=== PATIENT | male | born 1945 | race Caucasian/White ===

== ENCOUNTER 2017-02-24 22:02 | Emergency (ER) | payer SELFPAY ==
[2017-02-24 22:02] VITALS: BMI 20.7
[2017-02-24] MEDS ORDERED: Albuterol-Ipratrop 3 mg / 0.5 (3 ml) UD ONE ×2 (22:09→23:06)
[2017-02-24] MEDS ORDERED: Albuterol 0.083% Inhal Sol (2.5 mg/3 mL) UD INH STA (22:31)
--- NOTE | 2017-02-24 22:34 | C.PDOC ---
Time Seen by Provider: 02/24/17 22:27 Chief Complaint (Nursing): Shortness Of Breath Past Medical History Vital Signs: Last Vital Signs Temp 97.6 F 02/24/17 23:10 Pulse 95 H 02/24/17 23:10 Resp 18 02/24/17 23:10 BP 144/71 02/24/17 23:10 Pulse Ox 98 02/24/17 23:10 - Medical History PMH: Asthma, Emphysema Family History: States: Unknown Family Hx - Social History Hx Tobacco Use: Yes Hx Alcohol Use: Yes Hx Substance Use: No - Immunization History Hx Tetanus Toxoid Vaccination: No Hx Influenza Vaccination: No Hx Pneumococcal Vaccination: No ED Course And Treatment O2 Sat by Pulse Oximetry: 99 Disposition - Disposition Disposition: HOME/ ROUTINE Disposition Time: 23:30 Condition: IMPROVED Prescriptions: Albuterol HFA [Ventolin HFA 90 mcg/actuation (8 g)] 2 puff IH [id number] PRN #1 puff PRN Reason: Cough Instructions: Acute Bronchitis (ED), Wheezing (ED) Forms: [employer] (Turkish) - Clinical Impression Clinical Impression: Asthmatic bronchitis
[2017-02-24] MEDS ORDERED: Albuterol-Ipratrop 3 mg / 0.5 (3 ml) UD INH STA (23:00)
[2017-02-24 23:10] VITALS: BP 144/71; PULSE 95; RESP 18; TEMP 97.6
[2017-03-18 12:17] VITALS: O2SAT 99
== END 2017-02-24 23:34 | disposition home or self-care (01) ==
LOC: C.ER 22:02
DX: J45.909 Unspecified asthma, uncomplicated (principal); Z87.891 Personal history of nicotine dependence

== ENCOUNTER 2017-03-03 18:42 | Emergency (ER) | payer SELFPAY ==
[2017-03-03 18:42] VITALS: BMI 20.7
--- NOTE | 2017-03-03 19:48 | C.PDOC ---
History Of Present Illness 71 year old male brought to the ED via ambulance for evaluation of alcohol intoxication. Patient also states he is cold and is requesting a place to sleep for the night. He also complains of wheezing and productive cough with white sputum. Patient has been using albuterol inhaler today without relief. He denies any falls/injuries, chest pain, or other physical complaints. Time Seen by Provider: 03/03/17 19:09 Chief Complaint (Nursing): Substance Abuse History Per: Patient, EMS History/Exam Limitations: intoxication Onset/Duration Of Symptoms: Hrs Current Symptoms Are (Timing): Still Present Suicide/Self Injury Attempted (Context): None Modifying Factor(s): Alcohol Severity: Mild Associated Symptoms: denies: Suicidal Thoughts, Suicidal Plan Involuntary Hold By: Emergency Physician Additional History Per: Patient, EMS Past Medical History Reviewed: Historical Data, Nursing Documentation, Vital Signs Vital Signs: Last Vital Signs Temp 98 F 03/04/17 06:13 Pulse 86 03/04/17 06:13 Resp 18 03/04/17 06:13 BP 127/69 03/03/17 23:56 Pulse Ox 97 03/04/17 06:13 - Medical History PMH: Asthma, Emphysema Surgical History: No Surg Hx Family History: States: No Known Family Hx - Social History Hx Tobacco Use: Yes Hx Alcohol Use: Yes Hx Substance Use: No - Immunization History Hx Tetanus Toxoid Vaccination: No Hx Influenza Vaccination: No Hx Pneumococcal Vaccination: No Review Of Systems Except As Marked, All Systems Reviewed And Found Negative. Constitutional: Negative for: Fever, Chills Cardiovascular: Negative for: Chest Pain, Palpitations Respiratory: Positive for: Cough, Sputum (white), Wheezing Gastrointestinal: Negative for: Nausea, Vomiting, Abdominal Pain, Diarrhea Psych: Positive for: Other (EtOH intoxication ). Negative for: Suicidal ideation Physical Exam - Physical Exam Appears: Well, Non-toxic, No Acute Distress, Other (mildly intoxicated ) Skin: Normal Color, Warm, Dry Head: Atraumatic, Normacephalic Eye(s): bilateral: Normal Inspection Oral Mucosa: Moist, Other (alcohol on breath ) Neck: Supple Chest: No Deformity Cardiovascular: Rhythm Regular Respiratory: No Accessory Muscle Use, No Rales, No Rhonchi, Wheezing (scant, expiratory wheezing B/L) Gastrointestinal/Abdominal: Normal Exam, Bowel Sounds, Soft, No Tenderness Extremity: Normal ROM, No Pedal Edema, No Calf Tenderness Neurological/Psych: Oriented x3, Other (awake, alert ) ED Course And Treatment O2 Sat by Pulse Oximetry: 98 (on RA) Pulse Ox Interpretation: Normal Progress Note: CXR ordered and reviewed. Patient given duoneb treatment, PO azithromycin. 3:45am - Patient arousable to verbal stimuli. Pending sobriety, AM discharge. 6:00am- Patient is AAOx3, ambulating normally in ED. He is clinically sober at this time. ON exam, he has gooa air entry B/L without wheezing or accessory muscle use. CXR (-) for infiltrates, however patient is smoker with productive cough, will treat with azithromycin. Patient instructed to follow up with PMD/clinic in 1-2 days, and understands he should return to ED if symptoms worsen. Disposition Counseled Patient/Family Regarding: Studies Performed, Diagnosis, Need For Followup, Rx Given - Disposition Referrals: [facility] [Outside] Disposition: HOME/ ROUTINE Disposition Time: 06:00 Condition: STABLE Additional Instructions: SEGUIMIENTO CON CLNICA MDICA EN 1-2 PURCELL USE MEDICAMENTOS SEGN LO INDICADO REGRESE AL SHIVA DE EMERGENCIA SI LOS SNTOMAS EMPEORAN Prescriptions: Albuterol HFA [Ventolin HFA 90 mcg/actuation (8 g)] 0.09 mg IH Q4 PRN #1 puff PRN Reason: Wheezing Azithromycin [Zithromax] 250 mg PO DAILY #4 tab Instructions: Acute Bronchitis (ED), Alcohol Intoxication (ED) Forms: [employer] (Luxembourger) Print Language: DUTCH - POA Present On Arrival: None - Clinical Impression Clinical Impression: Asthmatic bronchitis, Alcohol intoxication - Scribe Statement The provider has reviewed the documentation as recorded by the Scribe (Meme Soni) Provider Attestation: All medical record entries made by the Scribe were at my direction and personally dictated by me. I have reviewed the chart and agree that the record accurately reflects my personal performance of the history, physical exam, medical decision making, and the department course for this patient. I have also personally directed, reviewed, and agree with the discharge instructions and disposition.
[2017-03-03] MEDS ORDERED: Albuterol-Ipratrop 3 mg / 0.5 (3 ml) UD INH STA (21:51)
[2017-03-03] MEDS ORDERED: Albuterol-Ipratrop 3 mg / 0.5 (3 ml) UD ONE ×2 (22:00→22:09)
[2017-03-03 23:57] VITALS: BP 127/69; RESP 18
[2017-03-04 06:17] VITALS: PULSE 86; TEMP 98
[2017-03-06 07:24] VITALS: O2SAT 98
--- NOTE | 2017-03-07 10:12 | RAD ---
HISTORY: PRODUCTIVE COUGH COMPARISON: 02/16/2013 TECHNIQUE: Chest PA and lateral FINDINGS: LUNGS: The right peritracheal postsurgical changes are renoted. Vague increased opacity/interval pleural parenchymal pathology here is possible. The elevated right hemidiaphragm volume loss is as before. Surgical changes extend down to the right hilum. Vague increased opacity fat dense consolidation perceived over the right hemithorax. Left apical pleural thickening-similar PLEURA: No significant pleural effusion identified. No pneumothorax apparent. CARDIOVASCULAR: Top-normal heart size. Tortuous unfolded thoracic aorta. Central pulmonary vasculature is minimally increased- this may in part be chronic. OSSEOUS STRUCTURES: No significant abnormalities. VISUALIZED UPPER ABDOMEN: Normal. OTHER FINDINGS: None. IMPRESSION: Right peritracheal/right upper lobe postsurgical changes. Here the pleural-parenchymal density appears slightly increased. Interval and/or progressive right upper lobe pathology here - possible-not excluded. Vague increased opacity perceived over the right hudson thorax -increased pulmonary venous congestion - 1 consideration. No dense consolidation noted. Volume loss elevated right hemidiaphragm-similar appearance
== END 2017-03-04 06:18 | disposition home or self-care (01) ==
LOC: C.ER 18:42
DX: J45.909 Unspecified asthma, uncomplicated (principal); Z72.0 Tobacco use; F10.129 Alcohol abuse with intoxication, unspecified; Y90.9 Presence of alcohol in blood, level not specified

== ENCOUNTER 2017-11-17 23:22 | Emergency (ER) | payer OTHER ==
[2017-11-17 23:22] VITALS: BMI 20.7
[2017-11-17] MEDS ORDERED: Albuterol-Ipratrop 3 mg / 0.5 (3 ml) UD ONE (23:31)
--- NOTE | 2017-11-18 00:01 | C.PDOC ---
History Of Present Illness patient presents with wheezing and cough for the last few days. He has ran out of his inhaler. Speaking in complete sentences, no f/c/n/v. No chest pain or palpitations Time Seen by Provider: 11/18/17 00:01 Chief Complaint (Nursing): Shortness Of Breath Past Medical History Reviewed: Historical Data, Nursing Documentation, Vital Signs Vital Signs: Last Vital Signs Temp 97.8 F 11/17/17 23:32 Pulse 88 11/18/17 01:30 Resp 14 11/18/17 01:30 BP 131/55 L 11/18/17 01:30 Pulse Ox 100 11/18/17 02:16 - Medical History PMH: Asthma, CHF, COPD, Emphysema Denies: Chronic Kidney Disease - [facility] Procedures DETOXIFICATION SERVICES FOR SUBSTANCE ABUSE TREATMENT (05/15/17) EXTIRPATION OF MATTER FROM SUBDURAL SPACE, OPEN APPROACH (08/10/17) INSERTION OF ENDOTRACHEAL AIRWAY INTO TRACHEA, ENDO (08/10/17) PHERESIS OF PLATELETS, SINGLE (08/10/17) RESPIRATORY VENTILATION, 24-96 CONSECUTIVE HOURS (08/10/17) TRANSFUSE NONAUT FROZEN PLASMA IN PERIPH VEIN, PERC (08/10/17) Family History: States: No Known Family Hx - Social History Hx Tobacco Use: Yes (former, quit 1 yr ago) Hx Alcohol Use: Yes Hx Substance Use: No - Immunization History Hx Tetanus Toxoid Vaccination: No Hx Influenza Vaccination: No Hx Pneumococcal Vaccination: No Review Of Systems Constitutional: Negative for: Fever, Chills ENT: Negative for: Throat Pain Cardiovascular: Negative for: Chest Pain Respiratory: Positive for: Shortness of Breath, Wheezing Gastrointestinal: Negative for: Nausea, Vomiting, Abdominal Pain Musculoskeletal: Negative for: Back Pain Skin: Negative for: Rash Neurological: Negative for: Weakness Psych: Negative for: Anxiety Physical Exam - Physical Exam Appears: Non-toxic, No Acute Distress Skin: Warm, Dry Oral Mucosa: Moist Neck: Supple Chest: Symmetrical Cardiovascular: Rhythm Regular Respiratory: Decreased Breath Sounds, No Rales, Rhonchi (bases), Wheezing ( diffuse) Gastrointestinal/Abdominal: Soft, No Tenderness, No Distention Back: Normal Inspection Extremity: Normal ROM Extremity: Bilateral: Atraumatic Neurological/Psych: Oriented x3, Normal Speech, Normal Cognition Gait: Steady ED Course And Treatment - Laboratory Results Result Diagrams: 11/18/17 00:18 11/18/17 00:18 ECG: Interpreted By Me, Viewed By Me ECG Rhythm: Sinus Rhythm (69), Nonspecific Changes O2 Sat by Pulse Oximetry: 100 Pulse Ox Interpretation: Normal - Radiology CXR: Interpreted by Me, Viewed By Me CXR Interpretation: No: Infiltrates, Fracture, Pnemothorax Progress Note: 2:17 pt feels much better, no wheezing or sob Reevaluation Time: 02:18 Reassessment Condition: Improved Critical Care Time - Critical Care Note Total Time (in mins): 30 Documented critical care: time excludes all time spent performing seperately billable procedures. Disposition Counseled Patient/Family Regarding: Studies Performed, Diagnosis, Need For Followup - Disposition Referrals: [facility] [Outside] [facility] [Outside] Disposition: HOME/ ROUTINE Disposition Time: 00:01 Condition: FAIR Additional Instructions: Please return if symptoms recur Prescriptions: Albuterol HFA [Ventolin HFA 90 mcg/actuation (8 g)] 2 puff IH [id number] #1 puff Azithromycin [Zithromax Tri-Alex] 500 mg PO DAILY #3 tab Prednisone [Deltasone] 20 mg PO DAILY #5 tablet Instructions: Asthma, Adult (DC) Forms: [employer] (Nigerian) - Clinical Impression Clinical Impression: Asthma exacerbation
[2017-11-18] MEDS ORDERED: Albuterol-Ipratrop 3 mg / 0.5 (3 ml) UD ONE (00:15)
[2017-11-18] MEDS: Albuterol-Ipratrop 3 mg / 0.5 (3 ml) UD IH SCH ×3 (00:21→00:51)
[2017-11-18 00:22] LABS: VENOUS BLOOD GAS BASE EXCESS 2.8 mmol/L (0.0-2.0); VENOUS BLOOD GAS PCO2 52 mmHg (40-60); VENOUS BLOOD GAS PO2 25 mm/Hg (30-55); VENOUS BLOOD PH 7.36 (7.32-7.43)
[2017-11-18 00:23] LABS: BASO # 0.1 K/uL (0.0-0.2); BASO % 1.9 % (0.0-2.0); EOS # 0.2 K/uL (0.0-0.7); EOS % 6.3 % (0.0-4.0); HEMOGLOBIN 10.9 g/dL (12.0-18.0); LYMPH # 1.6 K/uL (1.0-4.3); LYMPH % 46.1 % (20.0-40.0); MEAN CORPUSCULAR HEMOGLOBIN 33.4 pg (27.0-31.0); MEAN CORPUSCULAR HGB CONC 34.1 g/dL (33.0-37.0); MEAN PLATELET VOLUME 6.6 fL (7.2-11.7); MONO # 0.5 K/uL (0.0-0.8); MONO % 15.1 % (0.0-10.0); NEUT # 1.1 K/uL (1.8-7.0); NEUT % 30.6 % (50.0-75.0); RBC 3.28 Mil/uL (4.40-5.90); RED CELL DISTRIBUTION WIDTH 13.7 % (11.5-14.5); WHITE BLOOD COUNT 3.5 K/uL (4.8-10.8)
[2017-11-18 00:45] LABS: B-TYPE NATRIURETIC PEPTIDE 244 pg/mL (0-900)
[2017-11-18 00:48] LABS: ALB/GLOB RATIO 1.8 (1.0-2.1); ALBUMIN 4.6 g/dL (3.5-5.0); ALT/SGPT 35 U/L (21-72); AST/SGOT 67 U/L (17-59); BLOOD UREA NITROGEN 23 mg/dL (9-20); CALCIUM 8.8 mg/dl (8.6-10.4); GFR NON-AFRICAN AMERICAN > 60
[2017-11-18 05:11] VITALS: BP 133/66; PULSE 98; RESP 16; TEMP 98.4; O2SAT 96
--- NOTE | 2017-11-18 09:55 | RAD ---
Date of service: 11/18/2017 PROCEDURE: CHEST RADIOGRAPH, 1 VIEW HISTORY: SOB COMPARISON: Chest radiograph dated 08/18/2017. FINDINGS: LUNGS: Left basilar atelectasis. PLEURA: Small left pleural effusion. CARDIOVASCULAR: Atherosclerotic aortic calcifications. Cardiomediastinal silhouette within normal limits. OSSEOUS STRUCTURES: Unchanged. VISUALIZED UPPER ABDOMEN: Normal. OTHER FINDINGS: None. IMPRESSION: Small left pleural effusion.
== END 2017-11-18 05:22 | disposition home or self-care (01) ==
LOC: C.ER 23:22
DX: J45.901 Unspecified asthma with (acute) exacerbation (principal)
CPT/HCPCS: 71045; 80053; 82803; 83880; 85025; 96374; 99285; J2930